=== PATIENT | male | born 1980 | race Caucasian/White ===

== ENCOUNTER 2024-08-16 05:57 | Emergency (ER) | payer BC ==
[2024-08-16 06:13] VITALS: TEMP 97.1
--- NOTE | 2024-08-16 06:17 | ERPHSYRPT ---
- History of Present Illness Time Seen by Provider: 08/16/24 06:17 Historian: patient Exam Limitations: no limitations Patient Subjective Stated Complaint: pt states that chest pain Triage Nursing Assessment: . Physician History: This is a 44-year-old white male patient who does not have a local primary care provider and [facility] and arrives by private vehicle secondary to anterior bilateral chest pain with radiation into his left arm and an associated headache. Patient states is not unusual for him to wake up with a headache frequently. He has not had any flulike symptoms. Patient has never been here in our emergency department in the past. He himself has no coronary artery disease diagnosis. He has no hyperlipidemia. He has no hypertension. His heart risk factors are low. The chest pain is described as a 6 out of 10 chest ache. He did not take any aspirin prior to arrival. Patient states that last evening he was playing with his 5-month-old son. This morning he woke up with the typical headache but had the chest pain and left arm pain as described above. He takes no medications chronically and he has no known drug allergies. Timing/Duration: yesterday, worse ('s morning) Quality: aching Location: central Chest Pain Radiation: arm (Left arm) Severity of Pain-Max: mild Severity of Pain-Current: mild Modifying Factors: Improves With: nothing Associated Symptoms: headache Prior Chest Pain/Cardiac Workup: no prior chest pain, no prior cardiac workup Nitro Today/Relief: no nitro taken today Aspirin Treatment Today: 81 mg x 4, provided by ED Allergies/Adverse Reactions: No Known Drug Allergies Allergy (Unverified 08/16/24 06:01) Home Medications: No Reportable Medications [No Reported Medications] 08/16/24 [History] Hx Tetanus, Diphtheria Vaccination/Date Given: Yes Hx Influenza Vaccination/Date Given: Yes Hx Pneumococcal Vaccination/Date Given: No Travel Risk - International Travel Have you traveled outside of the country in past 3 weeks: No - Emerging Infectious Disease Are you exhibiting symptoms associated with any current EIDs: No - Review of Systems Constitutional: No Symptoms Eyes: No Symptoms Ears, Nose, & Throat: No Symptoms Respiratory: No Symptoms Cardiac: Chest Pain Abdominal/Gastrointestinal: No Symptoms Genitourinary Symptoms: No Symptoms Musculoskeletal: No Symptoms Skin: No Symptoms Neurological: No Symptoms Psychological: No Symptoms Endocrine: No Symptoms Hematologic/Lymphatic: No Symptoms Immunological/Allergic: No Symptoms All Other Systems: Reviewed and Negative - Past Medical History Pertinent Past Medical History: No - Past Surgical History Past Surgical History: Yes Other Surgical History: wisdom teeth, hernia repair, cyst removed from neck - Social History Smoking Status: Smoker, status unknown Exposure to second hand smoke: Yes Drug Use: none - Social Determinants of Health Will the patient participate in the screening: Yes Do you worry about a steady place to live?: No Do you have any problems with any of the following?: No known problems In the past 12 months,have you had to go without utilities?: No Transportation Issues: No Has anyone in your support network made you feel unsafe?: No Have you or anyone in your house had to go without enough: No - Nursing Vital Signs Nursing Vital Signs: Initial Vital Signs Temperature 97.1 F 08/16/24 06:03 Pulse Rate 52 L 08/16/24 06:03 Respiratory Rate 14 08/16/24 06:03 Blood Pressure 134/87 08/16/24 06:03 O2 Sat by Pulse Oximetry 98 08/16/24 06:03 Pain Scale Pain Intensity 6 - Physical Exam General Appearance: no apparent distress, alert, anxiety, thin Eye Exam: PERRL/EOMI, eyes nml inspection Ears, Nose, Throat Exam: normal ENT inspection, moist mucous membranes Neck Exam: normal inspection, non-tender, supple, full range of motion Respiratory Exam: normal breath sounds, chest tenderness, lungs clear, airway intact, No respiratory distress Cardiovascular Exam: normal heart sounds, normal peripheral pulses, bradycardia Gastrointestinal/Abdomen Exam: soft, normal bowel sounds, No tenderness Rectal Exam: not done Back Exam: normal inspection, normal range of motion, No CVA tenderness, No vertebral tenderness Extremity Exam: normal inspection, normal range of motion, pelvis stable Neurologic Exam: alert, oriented x 3, cooperative, disaster recovery manager II-XII nml as tested, nml cerebellar function, nml station & gait, sensation nml Skin Exam: normal color, warm, dry Lymphatic Exam: No adenopathy SpO2 Interpretation: normal SpO2: 98 O2 Delivery: Room Air - Course Nursing assessment & vital signs reviewed: Yes EKG Interpreted by Me: RATE (49), Sinus Wilfred, NORMAL AXIS, NORMAL INTERVALS, NORMAL QRS, NORMAL ST-T, Other (No acute ischemic changes on today's twelve-lead EKG. QTc is 360) - Progress Progress: re-examined Air Movement: good Progress Note: 08/16/24 06:37 My medical decision making and the assignment of moderate complexity to this patient's medical issue today is based on review of the patient's past medical history, review of the patient's medication list, review of the patient's drug allergy list, history present illness and physical findings on examination. The workup in this patient includes placement of an intravenous line, twelve-lead EKG, troponin level, D-dimer level, CBC, CMP, magnesium level, chest x-ray. Will also provide the patient with 4 baby aspirin. 08/16/24 06:39 Differential diagnosis includes but is not limited to myocardial infarction, electrolyte abnormalities, arrhythmia, pneumonia, pulmonary embolus, muscle skeletal pain I am transferring care of this patient to Dr. Adler at shift change. The patient history, chief complaint and workup was discussed with him. He will follow-up on the workup results and make final disposition. Blood Culture(s) Obtained: No - Departure Departure Disposition: Home Clinical Impression: Nonspecific chest pain Condition: Stable Critical Care Time: No
[2024-08-16] MEDS: BABY ASPIRIN 81 MG CHEW PO ONE (06:45)
[2024-08-16] MEDS ORDERED: BABY ASPIRIN 81 MG CHEW ONE (06:45)
[2024-08-16 07:16] LABS: Absolute Neutrophil Ct (ANC) 3.06 x10^3/uL (1.78-5.38); BASOPHIL % 0.2 % (0.2-1.2); Basophil (Absolute #) 0.01 x10^3/uL (0.01-0.08); Eosinophil (Absolute #) 0.05 x10^3/uL (0.04-0.54); Hematocrit 41.4 % (40.1-51.0); Hemoglobin 13.6 g/dL (13.7-17.5); IMMATURE GRAN # 0.01 x10^3u/L (0.001-0.031); IMMATURE GRAN % 0.2 % (0.001-0.429); Lymphocyte (Absolute #) 1.63 x10^3/uL (1.32-3.57); Lymphocytes % 31.3 % (21.8-53.1); Mean Cell Volume 80.4 fL (79.0-92.2); Mean Corpuscular Hemoglobin 26.4 pg (25.7-32.2); Mean Corpuscular Hgb Concent. 32.9 g/dL (32.3-36.5); Mean Platelet Volume 9.8 fL (9.4-12.4); Monocyte (Absolute #) 0.45 x10^3/uL (0.30-0.82); Monocytes % 8.6 % (5.3-12.2); Neutrophil % 58.7 % (34.0-67.9); Platelet Count 261 x10^3/uL (163-337); Red Blood Count 5.15 x10^6/uL (4.63-6.08); Red Cell Distribution Width 14.8 % (11.6-14.4); White Blood Count 5.2 x10^3/uL (4.23-9.07)
[2024-08-16 07:32] LABS: D-DIMER QUANTITATIVE < 0.19 mg/L (0.0-0.50); PROTIME 10.9 SECONDS (9.4-12.5)
[2024-08-16 07:40] LABS: ALBUMIN 4.5 g/dL (3.5-5.0); ALKALINE PHOSPHATASE 65 U/L (38-126); ANION GAP 13.4 MEQ/L (5-15); BLOOD UREA NITROGEN 26 mg/dL (9-20); CHLORIDE 105 mmol/L (98-107); CK-Creatinine Phosphokinase 46 U/L (55-170); Calcium 9.5 mg/dL (8.4-10.2); Carbon Dioxide 26 mmol/L (22-30); Creatinine 1 1.06 mg/dL (0.66-1.25); EST GLOMERULAR FILTRATION RATE 89.9 ML/MIN; Glucose 127 mg/dL (74-106); MAGNESIUM 2.1 mg/dL (1.6-2.3); NT PRO BNPII < 20.0 pg/mL (<300); Potassium 3.8 mmol/L (3.5-5.1); SGOT/AST 24 U/L (17-59); SGPT/ALT 19 U/L (0-50); SODIUM 141 mmol/L (135-145); Total Protein 7.3 g/dL (6.3-8.2)
[2024-08-16 08:09] VITALS: BP 109/73; PULSE 50; RESP 16; O2SAT 98
--- NOTE | 2024-08-16 08:46 | XRAY ---
Indication: Chest pain. Comparison: None Portable chest demonstrates normal heart, lungs, and bony thorax.
== END 2024-08-16 08:10 | disposition home or self-care (01) ==
LOC: ED 05:57
DX: R07.9 Chest pain, unspecified (principal); R51.9 Headache, unspecified
CPT/HCPCS: 36415; 71045; 80053; 82550; 83735; 83880; 84484; 85025; 85379; 85610; 93005; 93041; 94760; 99284; 99285; A9270-GY